=== PATIENT | male | born 1960 | race Caucasian/White ===

== ENCOUNTER 2023-11-28 14:14 | Inpatient (IN) ==
[2023-11-28 18:02] LABS: ABS Basophils 0.2 10^3/uL (0.0-0.1); ABS Eosinophils 0.1 10^3/uL (0.0-0.5); ABS Lymphocytes 2.1 10^3/uL (1.0-4.8); ABS Monocytes 1.2 10^3/uL (0.0-1.1); ABS Neutrophils 12.8 10^3/uL (1.5-7.6); Eosinophil % 0.8 %; Hematocrit 36.3 % (38-53); Lymphocyte % 12.8 %; Mean Corpuscular Hemoglobin 29.7 pg (27-33); Mean Corpuscular Hgb Conc 33.1 g/dL (31-36); Mean Corpuscular Volume 89.8 fL (80-97); Mean Platelet Volume 6.8 fL (7.5-11.2); Platelet Count 327 10^3/uL (150-450); Red Blood Count 4.04 10^6/uL (4.06-5.63); Red Cell Distribution Width 13.6 % (12-17); White Blood Count 16.3 10^3/uL (3.6-10.2)
[2023-11-28 18:38] LABS: Albumin/Globulin Ratio 1.3 (1-3); C Reactive Protein 108.7 mg/L (<8.01); Calcium 9.3 mg/dL (8.6-10.3); Creatinine, Serum 1.39 mg/dL (0.67-1.17); Globulin 3.2 g/dL (2-4); Total Bilirubin 0.4 mg/dL (0.2-1.0); Total Protein 7.2 g/dL (6.4-8.9); eGFR CKD-EPI 57.3 (>60)
[2023-11-28] MEDS: cefTRIAXone 1 gm/50 mL D5W 1 GM/50 ML BAG IV ONE (19:30)
[2023-11-28] MEDS: NS 0.9% 1000 ml BAG 1,000 ML IV ONE (19:42)
[2023-11-28] MEDS: metroNIDAZOLE IV 500 MG/100ML 500 MG/100 ML BAG IVPB ONE (20:15)
[2023-11-28 21:56] LABS: Urine Appearance Clear; Urine Bilirubin Negative (Negative); Urine Blood Negative (Negative); Urine Color Light-Yellow; Urine Glucose 4+ (>=1000 mg/dL) (Negative); Urine Ketones 1+ (Negative); Urine Nitrite Negative (Negative); Urine Protein Negative (Negative); Urine Specific Gravity 1.018 (1.002-1.030); Urine Urobilinogen Negative (Negative)
[2023-11-28] MEDS ORDERED: Zosyn per Pharmacy NOTE FOLLOW UP SCH (23:00)
[2023-11-29] MEDS: Vancomycin 1,000 MG in NS 0.9% 250 ml 250 ML IVPB ONE (00:05)
[2023-11-29] MEDS ORDERED: Dextrose 50% Syringe 50 ml 25 GM/50 ML SYRINGE IV PUSH PRN (01:53)
[2023-11-29] MEDS: Piperacillin/Tazobac 3.375 BAG 3.375 GM/100 ML BAG IV ONE (04:00)
[2023-11-29 06:14] LABS: ABS Basophils 0.1 10^3/uL (0.0-0.1); ABS Eosinophils 0.1 10^3/uL (0.0-0.5); ABS Lymphocytes 1.9 10^3/uL (1.0-4.8); ABS Monocytes 0.7 10^3/uL (0.0-1.1); ABS Neutrophils 7.9 10^3/uL (1.5-7.6); Hematocrit 31.1 % (38-53); Hemoglobin 10.5 g/dL (13.2-16.3); Lymphocyte % 17.9 %; Mean Corpuscular Hgb Conc 33.8 g/dL (31-36); Mean Corpuscular Volume 88.8 fL (80-97); Mean Platelet Volume 6.7 fL (7.5-11.2); Platelet Count 248 10^3/uL (150-450); Red Blood Count 3.51 10^6/uL (4.06-5.63); Red Cell Distribution Width 13.7 % (12-17); White Blood Count 10.7 10^3/uL (3.6-10.2)
[2023-11-29 06:18] LABS: INR 1.46 (0.83-1.13)
[2023-11-29 06:55] LABS: Creatinine, Serum 1.18 mg/dL (0.67-1.17); Magnesium 1.7 mg/dL (1.9-2.7); Potassium 3.9 mmol/L (3.5-5.0); eGFR CKD-EPI 69.8 (>60)
[2023-11-29] MEDS: Magnesium Sulfate 2 gm BAG 2 GM/50 ML BAG IV ONE ×2 (08:22→12:55)
[2023-11-29] MEDS: ZOSYN 3.375 GM Q8H per EXTENDED INFUSION IV SCH (09:52)
[2023-11-29] MEDS: Lactated Ringers 1000 ml BAG 500 ML IV ONE (14:14)
[2023-11-29] MEDS: Iodixanol (CONTRAST) 320 MG/ML 100 ML SDV IV ONE (14:44)
[2023-11-30 06:04] LABS: Hematocrit 33.5 % (38-53); Hemoglobin 11.1 g/dL (13.2-16.3); Mean Corpuscular Hemoglobin 29.6 pg (27-33); Mean Corpuscular Hgb Conc 33.2 g/dL (31-36); Mean Corpuscular Volume 89.3 fL (80-97); Mean Platelet Volume 7.1 fL (7.5-11.2); Platelet Count 271 10^3/uL (150-450); Red Blood Count 3.75 10^6/uL (4.06-5.63); Red Cell Distribution Width 13.8 % (12-17); White Blood Count 11.2 10^3/uL (3.6-10.2)
[2023-11-30 06:26] LABS: Calcium 8.3 mg/dL (8.6-10.3); Creatinine, Serum 1.29 mg/dL (0.67-1.17); Magnesium 2.5 mg/dL (1.9-2.7); Potassium 4.2 mmol/L (3.5-5.0); eGFR CKD-EPI 62.3 (>60)
[2023-11-30] MEDS: SEMAGLUTIDE 14 MG PO SCH ×2 (08:01→08:32)
[2023-11-30 12:01] LABS: Rapid COVID-19 Molecular Undetected (Undetected)
[2023-11-30] MEDS ORDERED: fentaNYL 250 mcg/5 ml 50 MCG/ML 5 ml VIAL (250 MCG) ONE (12:06)
[2023-11-30] MEDS ORDERED: Rocuronium 50 mg VIAL 10 mg/ml 5 ml VIAL (50 mg) ONE (12:06)
[2023-11-30] MEDS ORDERED: Midazolam 2 mg/2 ml VIAL 1 mg/ml 2 ml VIAL (2 mg) ONE ×2 (12:06→15:03)
[2023-11-30] MEDS ORDERED: Propofol 10 MG/ML 20 ML BTL ONE (12:06)
[2023-11-30] MEDS ORDERED: fentaNYL 100 mcg/2 ml 50 MCG/ML VIAL ONE (14:15)
[2023-11-30] MEDS ORDERED: Lidocaine 1% 50 ML MDV VIAL ONE (14:49)
[2023-11-30] MEDS ORDERED: Bupivacaine 0.5% SDV PF 30ML VIAL ONE (14:49)
[2023-11-30] MEDS ORDERED: Ondansetron 4 mg VIAL 2 MG/ML 2 ml VIAL ONE (14:58)
[2023-11-30] MEDS ORDERED: Ondansetron 4 mg VIAL 2 MG/ML 2 ml VIAL IV PRN (16:29)
[2023-11-30] MEDS ORDERED: fentaNYL 100 mcg/2 ml 50 MCG/ML VIAL IV PRN (16:29)
[2023-11-30] MEDS ORDERED: HYDROmorphone 1 MG/1 ML SYRINGE IV PRN (16:29)
[2023-11-30] MEDS ORDERED: Acetaminophen IV 1 GM/100ML 1,000 MG/100 ML BAG IV PRN (16:29)
[2023-11-30] MEDS ORDERED: Naloxone 0.4 mg VIAL 0.4 mg/ml 1 ml VIAL IV PRN (16:29)
[2023-11-30] MEDS: Senna TAB 8.6 mg TAB PO SCH (20:12)
[2023-12-01 06:01] LABS: ABS Basophils 0.1 10^3/uL (0.0-0.1); ABS Eosinophils 0.2 10^3/uL (0.0-0.5); ABS Lymphocytes 2.1 10^3/uL (1.0-4.8); ABS Monocytes 0.7 10^3/uL (0.0-1.1); ABS Neutrophils 8.9 10^3/uL (1.5-7.6); ABS Nucleated RBC 0.01 10^3/ul; Eosinophil % 2.1 %; Hematocrit 32.6 % (38-53); Hemoglobin 10.8 g/dL (13.2-16.3); Lymphocyte % 17.2 %; Mean Corpuscular Hgb Conc 33.3 g/dL (31-36); Mean Corpuscular Volume 90.1 fL (80-97); Mean Platelet Volume 7.2 fL (7.5-11.2); Nucleated Red Blood Cells % 0.1 %/100WBC (0.0-0.8); Platelet Count 296 10^3/uL (150-450); Red Blood Count 3.62 10^6/uL (4.06-5.63); Red Cell Distribution Width 13.9 % (12-17)
[2023-12-01 06:20] LABS: Calcium 8.2 mg/dL (8.6-10.3); Creatinine, Serum 1.31 mg/dL (0.67-1.17); Magnesium 2.3 mg/dL (1.9-2.7); eGFR CKD-EPI 61.2 (>60)
[2023-12-01] MEDS: Polyethylene Glycol 3350 17 GM PACKET PO SCH (12:01)
[2023-12-02 06:12] LABS: ABS Basophils 0.1 10^3/uL (0.0-0.1); ABS Eosinophils 0.2 10^3/uL (0.0-0.5); ABS Lymphocytes 1.6 10^3/uL (1.0-4.8); ABS Monocytes 0.9 10^3/uL (0.0-1.1); ABS Neutrophils 9.2 10^3/uL (1.5-7.6); ABS Nucleated RBC 0.01 10^3/ul; Eosinophil % 1.7 %; Hematocrit 31.1 % (38-53); Hemoglobin 10.3 g/dL (13.2-16.3); Lymphocyte % 13.4 %; Mean Corpuscular Hemoglobin 29.6 pg (27-33); Mean Corpuscular Hgb Conc 33.1 g/dL (31-36); Mean Corpuscular Volume 89.6 fL (80-97); Mean Platelet Volume 6.8 fL (7.5-11.2); Platelet Count 292 10^3/uL (150-450); Red Blood Count 3.47 10^6/uL (4.06-5.63); White Blood Count 12.1 10^3/uL (3.6-10.2)
[2023-12-02 06:44] LABS: Calcium 8.3 mg/dL (8.6-10.3); Creatinine, Serum 1.18 mg/dL (0.67-1.17); Magnesium 2.2 mg/dL (1.9-2.7); Phosphorus 2.9 mg/dL (2.5-5.0); Potassium 4.1 mmol/L (3.5-5.0); eGFR CKD-EPI 69.3 (>60)
[2023-12-02] MEDS: Amoxicillin/Clavul 875/125 TAB (Augmentin 875 tab) PO SCH (09:25)
[2023-12-03 05:32] LABS: ABS Basophils 0.1 10^3/uL (0.0-0.1); ABS Eosinophils 0.2 10^3/uL (0.0-0.5); ABS Lymphocytes 1.7 10^3/uL (1.0-4.8); ABS Monocytes 0.7 10^3/uL (0.0-1.1); ABS Neutrophils 8.6 10^3/uL (1.5-7.6); Eosinophil % 1.9 %; Hemoglobin 9.8 g/dL (13.2-16.3); Lymphocyte % 14.9 %; Mean Corpuscular Hemoglobin 30.1 pg (27-33); Mean Corpuscular Hgb Conc 33.6 g/dL (31-36); Mean Corpuscular Volume 89.4 fL (80-97); Mean Platelet Volume 6.9 fL (7.5-11.2); Platelet Count 292 10^3/uL (150-450); Red Blood Count 3.24 10^6/uL (4.06-5.63); Red Cell Distribution Width 13.8 % (12-17); White Blood Count 11.3 10^3/uL (3.6-10.2)
[2023-12-03 05:50] LABS: Calcium 8.1 mg/dL (8.6-10.3); Creatinine, Serum 0.93 mg/dL (0.67-1.17); Magnesium 2.1 mg/dL (1.9-2.7); Potassium 3.9 mmol/L (3.5-5.0); eGFR CKD-EPI 92.3 (>60)
[2023-12-03 09:53] VITALS: BP 114/72
== END 2023-12-03 13:45 | disposition home or self-care (01) | DRG 854 ==
LOC: ED 14:14 → EDHOLD 14:14 → SUATTDRO 21:21 → EDHOLD 11-29 01:50 → MED 11-29 01:58 → SUATTDRO 11-30 09:00
PROVIDERS: ADMIT Internal Medicine; ATTEND Hospitalist

== ENCOUNTER 2023-12-05 13:26 | Inpatient (IN) ==
[2023-12-05] MEDS: Ondansetron 4 mg VIAL 2 MG/ML 2 ml VIAL IV ONE (14:24)
[2023-12-05] MEDS: Lactated Ringers 1000 ml BAG 1,000 ML IV ONE ×2 (14:24→17:43)
[2023-12-05 14:32] LABS: Hematocrit 35.1 % (38-53); Hemoglobin 11.6 g/dL (13.2-16.3); Mean Corpuscular Hemoglobin 29.7 pg (27-33); Mean Corpuscular Volume 90.1 fL (80-97); Mean Platelet Volume 6.8 fL (7.5-11.2); Platelet Count 484 10^3/uL (150-450); Red Blood Count 3.89 10^6/uL (4.06-5.63); Red Cell Distribution Width 14.2 % (12-17); White Blood Count 26.6 10^3/uL (3.6-10.2)
[2023-12-05 14:53] LABS: ABS Basophils 0.1 10^3/uL (0.0-0.1); ABS Lymphocytes 1.1 10^3/uL (1.0-4.8); ABS Monocytes 0.8 10^3/uL (0.0-1.1); ABS Neutrophils 24.6 10^3/uL (1.5-7.6); ABS Nucleated RBC 0.03 10^3/ul; Lymphocyte % 4.2 %; Nucleated Red Blood Cells % 0.1 %/100WBC (0.0-0.8)
[2023-12-05 14:57] LABS: High Sens Troponin Baseline 4568 pg/mL (<20)
[2023-12-05 15:23] LABS: High Sensitivity Troponin 1 Hr 3867 pg/mL (<20)
[2023-12-05 15:25] LABS: ALT 15 U/L (7-52); AST 35 U/L (13-39); Albumin 3.6 g/dL (3.2-5.2); Albumin/Globulin Ratio 1.1 (1-3); Alkaline Phosphatase 57 U/L (35-149); Anion Gap 21 mmol/L (2-16); Blood Urea Nitrogen 32 mg/dL (6-24); C Reactive Protein 171.99 mg/L (<8.01); CO2 Carbon Dioxide 19 mmol/L (22-32); Calcium 9.9 mg/dL (8.6-10.3); Chloride 96 mmol/L (101-111); Creatinine, Serum 1.88 mg/dL (0.67-1.17); Globulin 3.4 g/dL (2-4); Glucose 257 mg/dL (70-100); Lipase < 10 U/L (11.0-82.0); Magnesium 2.1 mg/dL (1.9-2.7); Potassium 5.1 mmol/L (3.5-5.0); Sodium 136 mmol/L (135-145); Total Bilirubin 0.4 mg/dL (0.2-1.0); eGFR CKD-EPI 39.6 (>60)
[2023-12-05] MEDS: Heparin DRIP 25,000 UNITS BAG 25,000 UNITS/250 ML BAG IV SCH (16:59)
[2023-12-05] MEDS: Heparin 5000 UNITS/ML 1 mL VIAL IV SCH (17:01)
[2023-12-05 17:14] LABS: Hematocrit 32.6 % (38-53); Hemoglobin 10.8 g/dL (13.2-16.3); Mean Corpuscular Hemoglobin 29.3 pg (27-33); Mean Corpuscular Hgb Conc 33.2 g/dL (31-36); Mean Corpuscular Volume 88.3 fL (80-97); Mean Platelet Volume 6.9 fL (7.5-11.2); Platelet Count 448 10^3/uL (150-450); Red Blood Count 3.69 10^6/uL (4.06-5.63); White Blood Count 23.2 10^3/uL (3.6-10.2)
[2023-12-05 17:42] LABS: ABS Basophils 0.1 10^3/uL (0.0-0.1); ABS Monocytes 0.8 10^3/uL (0.0-1.1); ABS Neutrophils 21.3 10^3/uL (1.5-7.6); ABS Nucleated RBC 0.01 10^3/ul; Lymphocyte % 4.3 %; Nucleated Red Blood Cells % 0.1 %/100WBC (0.0-0.8); RBC Morphology Normal (Normal)
[2023-12-05 17:51] LABS: Venous Bicarbonate HCO3 18.5 mmol/L (24-28)
[2023-12-05 17:54] LABS: Creatinine, Serum 1.73 mg/dL (0.67-1.17); eGFR CKD-EPI 43.8 (>60)
[2023-12-05] MEDS ORDERED: Dextrose 50% Syringe 50 ml 25 GM/50 ML SYRINGE IV PUSH PRN (18:45)
[2023-12-05] MEDS ORDERED: Vancomycin per Pharmacy 1 EA NOTE FOLLOW UP SCH (19:00)
[2023-12-05] MEDS: cefTRIAXone 1 gm/50 mL D5W 1 GM/50 ML BAG IV SCH (19:59)
[2023-12-05] MEDS: Insulin GLARGINE 100 un/ml 10 ml VIAL SUBCUT ONE (20:59)
[2023-12-05] MEDS: Vancomycin 1000 MG in NS 0.9% 250 ML IVPB ONE (21:02)
[2023-12-05 23:38] LABS: Calcium 8.8 mg/dL (8.6-10.3); Creatinine, Serum 1.76 mg/dL (0.67-1.17); Potassium 4.4 mmol/L (3.5-5.0); eGFR CKD-EPI 42.9 (>60)
[2023-12-06] MEDS: Lactated Ringers 1000 ml BAG 500 ML IV ONE (02:58)
[2023-12-06 05:08] LABS: ABS Basophils 0.1 10^3/uL (0.0-0.1); ABS Lymphocytes 2.2 10^3/uL (1.0-4.8); ABS Neutrophils 14.1 10^3/uL (1.5-7.6); Eosinophil % 0.1 %; Hematocrit 28.2 % (38-53); Hemoglobin 9.5 g/dL (13.2-16.3); Lymphocyte % 12.7 %; Mean Corpuscular Hemoglobin 29.5 pg (27-33); Mean Corpuscular Hgb Conc 33.7 g/dL (31-36); Mean Corpuscular Volume 87.5 fL (80-97); Platelet Count 367 10^3/uL (150-450); Red Blood Count 3.23 10^6/uL (4.06-5.63); Red Cell Distribution Width 13.9 % (12-17); White Blood Count 17.5 10^3/uL (3.6-10.2)
[2023-12-06 06:15] LABS: Calcium 8.5 mg/dL (8.6-10.3); Creatinine, Serum 1.69 mg/dL (0.67-1.17); Magnesium 2.1 mg/dL (1.9-2.7); Potassium 4.1 mmol/L (3.5-5.0); eGFR CKD-EPI 45.1 (>60)
[2023-12-06] MEDS: Vancomycin 500 MG in NS 0.9% 250 ML IVPB SCH (07:54)
[2023-12-06] MEDS ORDERED: Zosyn per Pharmacy NOTE FOLLOW UP SCH (08:00)
[2023-12-06] MEDS: Aspirin EC 81 mg TAB.EC (enteric coated) PO SCH (10:06)
[2023-12-06] MEDS: Piperacillin/Tazobac 3.375 BAG 3.375 GM/100 ML BAG IV ONE (10:07)
[2023-12-06] MEDS: Empagliflozin 25 MG TAB PO SCH (10:07)
[2023-12-06] MEDS ORDERED: Sulfur Hexaflouride MICROSPHR 25 MG VIAL ONE (11:25)
[2023-12-06] MEDS: ZOSYN 3.375 GM Q8H per EXTENDED INFUSION IV SCH (14:09)
[2023-12-06 18:03] LABS: Calcium 8.3 mg/dL (8.6-10.3); Creatinine, Serum 1.78 mg/dL (0.67-1.17); Magnesium 2.1 mg/dL (1.9-2.7); Potassium 4.1 mmol/L (3.5-5.0); eGFR CKD-EPI 42.3 (>60)
[2023-12-07 04:11] LABS: Creatinine, Serum 2.24 mg/dL (0.67-1.17); eGFR CKD-EPI 32.1 (>60)
[2023-12-07 04:32] LABS: ABS Basophils 0.2 10^3/uL (0.0-0.1); ABS Eosinophils 0.1 10^3/uL (0.0-0.5); ABS Lymphocytes 1.8 10^3/uL (1.0-4.8); ABS Monocytes 0.5 10^3/uL (0.0-1.1); ABS Neutrophils 9.9 10^3/uL (1.5-7.6); Eosinophil % 0.4 %; Hematocrit 27.2 % (38-53); Hemoglobin 9.3 g/dL (13.2-16.3); Lymphocyte % 14.6 %; Mean Corpuscular Volume 88.3 fL (80-97); Mean Platelet Volume 7.2 fL (7.5-11.2); Platelet Count 364 10^3/uL (150-450); Red Blood Count 3.08 10^6/uL (4.06-5.63); Red Cell Distribution Width 14.4 % (12-17); White Blood Count 12.5 10^3/uL (3.6-10.2)
[2023-12-07] MEDS ORDERED: Vancomycin Trough Check NOTE FOLLOW UP ONE (06:00)
[2023-12-07 09:00] LABS: Calcium 8.4 mg/dL (8.6-10.3); Magnesium 2.3 mg/dL (1.9-2.7); Potassium 3.9 mmol/L (3.5-5.0)
[2023-12-07] MEDS: NS 0.9% 1000 ml BAG 1,000 ML IV ONE ×2 (10:57→17:07)
[2023-12-07] MEDS: Lactated Ringers 1000 ml BAG 1,000 ML IV ONE (11:00)
[2023-12-07] MEDS: Ondansetron ODT 4 mg TAB 4 MG TAB SL PRN (13:31)
[2023-12-07] MEDS ORDERED: Al Hydrox/Mg Hydrox/Simet LIQ 30 ML UDC PO PRN (15:46)
[2023-12-07 15:57] LABS: ABS Basophils 0.2 10^3/uL (0.0-0.1); ABS Eosinophils 0.1 10^3/uL (0.0-0.5); ABS Lymphocytes 1.5 10^3/uL (1.0-4.8); ABS Monocytes 0.8 10^3/uL (0.0-1.1); ABS Neutrophils 15.4 10^3/uL (1.5-7.6); ABS Nucleated RBC 0.02 10^3/ul; Eosinophil % 0.4 %; Hemoglobin 9.5 g/dL (13.2-16.3); Lymphocyte % 8.2 %; Mean Corpuscular Hemoglobin 29.3 pg (27-33); Mean Corpuscular Hgb Conc 32.8 g/dL (31-36); Mean Corpuscular Volume 89.4 fL (80-97); Mean Platelet Volume 6.9 fL (7.5-11.2); Nucleated Red Blood Cells % 0.1 %/100WBC (0.0-0.8); Platelet Count 459 10^3/uL (150-450); Red Blood Count 3.24 10^6/uL (4.06-5.63); Red Cell Distribution Width 14.1 % (12-17); White Blood Count 17.8 10^3/uL (3.6-10.2)
[2023-12-07] MEDS: Famotidine IV 10 MG/ML 2 ml VIAL (20 mg) IV SLOW PU ONE (16:00)
[2023-12-07] MEDS: NS 0.9% 500 ml BAG 500 ML IV ONE (16:27)
[2023-12-07 17:02] LABS: Albumin 3.4 g/dL (3.2-5.2); C Reactive Protein 140.97 mg/L (<8.01); Calcium 8.2 mg/dL (8.6-10.3); Creatinine, Serum 1.83 mg/dL (0.67-1.17); Direct Bilirubin 0.1 mg/dL (0.03-0.18); Globulin 3.4 g/dL (2-4); Indirect Bilirubin 0.4 mg/dL (0.3-1.0); Potassium 3.8 mmol/L (3.5-5.0); Total Bilirubin 0.5 mg/dL (0.2-1.0); Total Protein 6.8 g/dL (6.4-8.9)
[2023-12-07 17:49] LABS: Urine Appearance Clear; Urine Bilirubin Negative (Negative); Urine Blood Negative (Negative); Urine Color Light-Yellow; Urine Glucose 4+ (>=1000 mg/dL) (Negative); Urine Ketones 1+ (Negative); Urine Nitrite Negative (Negative); Urine Protein Negative (Negative); Urine Urobilinogen Negative (Negative)
[2023-12-07 18:38] LABS: ABS Lymphocytes 1.3 10^3/uL (1.0-4.8); ABS Monocytes 0.8 10^3/uL (0.0-1.1); ABS Neutrophils 14.2 10^3/uL (1.5-7.6); ABS Nucleated RBC 0.01 10^3/ul; Eosinophil % 0.1 %; Hematocrit 30.5 % (38-53); Hemoglobin 9.6 g/dL (13.2-16.3); Lymphocyte % 7.9 %; Mean Corpuscular Hgb Conc 31.5 g/dL (31-36); Mean Corpuscular Volume 92.2 fL (80-97); Mean Platelet Volume 6.7 fL (7.5-11.2); Platelet Count 388 10^3/uL (150-450); Red Blood Count 3.31 10^6/uL (4.06-5.63); Red Cell Distribution Width 14.3 % (12-17); White Blood Count 16.3 10^3/uL (3.6-10.2)
[2023-12-07 19:45] LABS: Albumin 3.3 g/dL (3.2-5.2); Albumin/Globulin Ratio 1.1 (1-3); Calcium 7.7 mg/dL (8.6-10.3); Creatinine, Serum 1.81 mg/dL (0.67-1.17); Potassium 3.7 mmol/L (3.5-5.0); Total Bilirubin 0.5 mg/dL (0.2-1.0); Total Protein 6.3 g/dL (6.4-8.9); eGFR CKD-EPI 41.5 (>60)
[2023-12-07] MEDS: Insulin GLARGINE 100 un/ml 10 ml VIAL SUBCUT SCH (21:38)
[2023-12-07 23:27] LABS: High Sensitivity Troponin 1 Hr 3216 pg/mL (<20)
[2023-12-08 05:45] LABS: ABS Basophils 0.1 10^3/uL (0.0-0.1); ABS Lymphocytes 1.9 10^3/uL (1.0-4.8); ABS Monocytes 0.6 10^3/uL (0.0-1.1); ABS Neutrophils 8.5 10^3/uL (1.5-7.6); ABS Nucleated RBC 0.02 10^3/ul; Eosinophil % 0.2 %; Hemoglobin 8.8 g/dL (13.2-16.3); Mean Corpuscular Hemoglobin 29.9 pg (27-33); Mean Corpuscular Volume 88.1 fL (80-97); Nucleated Red Blood Cells % 0.1 %/100WBC (0.0-0.8); Platelet Count 341 10^3/uL (150-450); Red Blood Count 2.95 10^6/uL (4.06-5.63); Red Cell Distribution Width 14.2 % (12-17); White Blood Count 11.2 10^3/uL (3.6-10.2)
[2023-12-08 06:58] LABS: Calcium 7.8 mg/dL (8.6-10.3); Creatinine, Serum 1.9 mg/dL (0.67-1.17); Phosphorus 4.4 mg/dL (2.5-5.0); eGFR CKD-EPI 39.1 (>60)
[2023-12-08 07:12] LABS: Magnesium 2.5 mg/dL (1.9-2.7)
[2023-12-08 18:34] LABS: High Sensitivity Troponin 1 Hr 5862 pg/mL (<20)
[2023-12-08 20:26] LABS: Ferritin 1384.2 ng/mL (24-336)
[2023-12-09 05:09] LABS: ABS Eosinophils 0.2 10^3/uL (0.0-0.5); ABS Lymphocytes 2.2 10^3/uL (1.0-4.8); ABS Monocytes 0.5 10^3/uL (0.0-1.1); ABS Neutrophils 8.1 10^3/uL (1.5-7.6); ABS Nucleated RBC 0.01 10^3/ul; Eosinophil % 1.7 %; Hemoglobin 8.5 g/dL (13.2-16.3); Lymphocyte % 19.8 %; Mean Corpuscular Volume 88.2 fL (80-97); Mean Platelet Volume 7.2 fL (7.5-11.2); Nucleated Red Blood Cells % 0.1 %/100WBC (0.0-0.8); Platelet Count 279 10^3/uL (150-450); Red Blood Count 2.84 10^6/uL (4.06-5.63); Red Cell Distribution Width 14.3 % (12-17); White Blood Count 11.1 10^3/uL (3.6-10.2)
[2023-12-09 06:09] LABS: Creatinine, Serum 2.43 mg/dL (0.67-1.17); eGFR CKD-EPI 29.1 (>60)
[2023-12-09] MEDS: Ferric Gluconate IV 125 MG in NS 0.9% 100 ml BAG 100 ML IVPB SCH ×2 (09:16→10:07)
[2023-12-09 09:38] LABS: Calcium 7.5 mg/dL (8.6-10.3); Potassium 3.4 mmol/L (3.5-5.0)
[2023-12-09] MEDS ORDERED: Enoxaparin 40 MG/0.4 ML SYR SUBCUT SCH (20:00)
[2023-12-09] MEDS: Enoxaparin 30 MG/0.3 ML SYR SUBCUT SCH (21:36)
[2023-12-10 06:01] LABS: ABS Basophils 0.1 10^3/uL (0.0-0.1); ABS Eosinophils 0.3 10^3/uL (0.0-0.5); ABS Lymphocytes 1.5 10^3/uL (1.0-4.8); ABS Monocytes 0.6 10^3/uL (0.0-1.1); ABS Neutrophils 7.9 10^3/uL (1.5-7.6); ABS Nucleated RBC 0.01 10^3/ul; Eosinophil % 3.2 %; Hematocrit 26.6 % (38-53); Hemoglobin 9.1 g/dL (13.2-16.3); Lymphocyte % 14.1 %; Mean Corpuscular Hemoglobin 30.1 pg (27-33); Mean Corpuscular Hgb Conc 34.2 g/dL (31-36); Mean Corpuscular Volume 88.2 fL (80-97); Mean Platelet Volume 7.2 fL (7.5-11.2); Nucleated Red Blood Cells % 0.1 %/100WBC (0.0-0.8); Platelet Count 304 10^3/uL (150-450); Red Blood Count 3.02 10^6/uL (4.06-5.63); Red Cell Distribution Width 14.2 % (12-17); White Blood Count 10.4 10^3/uL (3.6-10.2)
[2023-12-10 06:54] LABS: Calcium 7.8 mg/dL (8.6-10.3); Creatinine, Serum 2.68 mg/dL (0.67-1.17); Magnesium 2.5 mg/dL (1.9-2.7); Potassium 3.1 mmol/L (3.5-5.0); eGFR CKD-EPI 25.9 (>60)
[2023-12-10] MEDS ORDERED: DALBAVANCIN HCL (NF) 500 MG/25 ML VIAL IVPB ONE (10:13)
[2023-12-10] MEDS: KCL 20 MEQ/100 ML IVPREMIX 20 MEQ/100 ML BAG IV SCH (10:39)
[2023-12-10] MEDS: Potassium Chlor 20 meq TAB.ER PO ONE ×2 (10:40→15:30)
[2023-12-10] MEDS: [UNRECOGNIZED DRUG - REMARK] IVPB ONE (12:27)
[2023-12-10 13:57] VITALS: BP 129/64
== END 2023-12-10 15:40 | disposition home health service (06) | DRG 280 ==
LOC: EDHOLD 13:26 → ED 13:26 → SUATTDRO 17:05 → MEDTELE 17:43 → ICU 12-07 18:41 → MEDTELE 12-09 13:46
PROVIDERS: ADMIT Internal Medicine; ATTEND Internal Medicine

== ENCOUNTER 2024-04-09 09:00 | Observation (INO) ==
[2024-04-09 09:00] LABS: ABS Lymphocytes 0.6 10^3/uL (1.0-4.8); ABS Monocytes 0.1 10^3/uL (0.0-1.1); ABS Neutrophils 9.5 10^3/uL (1.5-7.6); ABS Nucleated RBC 0.01 10^3/ul; Hematocrit 37.6 % (38-53); Hemoglobin 12.5 g/dL (13.2-16.3); Mean Corpuscular Hemoglobin 28.7 pg (27-33); Mean Corpuscular Hgb Conc 33.4 g/dL (31-36); Mean Corpuscular Volume 85.9 fL (80-97); Mean Platelet Volume 7.5 fL (7.5-11.2); Platelet Count 220 10^3/uL (150-450); Red Blood Count 4.37 10^6/uL (4.06-5.63); Red Cell Distribution Width 17.7 % (12-17); White Blood Count 10.2 10^3/uL (3.6-10.2)
[2024-04-09 09:11] LABS: Activated Partial Thrombo Time 28.2 seconds (26.0-38.0); INR 1.17 (0.83-1.13)
[2024-04-09 09:22] LABS: Creatinine, Serum 1.69 mg/dL (0.67-1.17); Potassium 4.4 mmol/L (3.5-5.0); eGFR CKD-EPI 45.1 (>60)
[2024-04-09] MEDS ORDERED: Heparin 2 UNITS/ML IVPREMIX 3,000 UNIT/1,500 ML BAG IV ONE (09:47)
[2024-04-09] MEDS ORDERED: Lidocaine 1% VIAL 10 MG/ML 30 ML VIAL ONE (09:47)
[2024-04-09] MEDS ORDERED: Iodixanol 320 (CONTRAST) 100 ML SDV ONE (09:47)
[2024-04-09] MEDS ORDERED: Heparin 1,000 UNIT/ML 10 ml (10,000 UNITS) CATHLAB/DIALYSIS ONE (10:10)
[2024-04-09] MEDS ORDERED: Midazolam 5 mg/5 ml VIAL 1 mg/ml 5 ml VIAL (5 mg) ONE (10:10)
[2024-04-09] MEDS ORDERED: fentaNYL 100 mcg/2 ml 50 MCG/ML VIAL ONE (10:10)
[2024-04-09] MEDS ORDERED: Naloxone 0.4 mg VIAL 0.4 mg/ml 1 ml VIAL IV PUSH PRN (10:17)
[2024-04-09] MEDS ORDERED: Flumazenil 0.5 mg/5 ml 0.1 MG/ML 5 ml VIAL IV PRN (10:17)
[2024-04-09] MEDS ORDERED: nitroGLYCERIN DRIP 25,000 MCG/250 ML BTL ONE (11:18)
[2024-04-09] MEDS ORDERED: Ondansetron 4 mg VIAL 2 MG/ML 2 ml VIAL ONE (16:33)
[2024-04-09] MEDS ORDERED: Ondansetron 4 mg VIAL 2 MG/ML 2 ml VIAL IV PRN (17:24)
[2024-04-09] MEDS ORDERED: Polyethylene Glycol 3350 17 GM PACKET PO PRN (17:24)
[2024-04-09] MEDS ORDERED: Senna TAB 8.6 mg TAB PO PRN (17:24)
[2024-04-09] MEDS: fentaNYL 100 mcg/2 ml 50 MCG/ML VIAL IV SLOW PU ONE (17:41)
[2024-04-09] MEDS: Midazolam 10 mg/10 ml VIAL 1 mg/ml 10 ml VIAL (10 mg) IV SLOW PU ONE (17:41)
[2024-04-09] MEDS: NS 0.9% 1000 ml BAG 1,000 ML IV SCH (18:06)
[2024-04-09 18:20] LABS: ABS Lymphocytes 0.8 10^3/uL (1.0-4.8); ABS Monocytes 0.2 10^3/uL (0.0-1.1); Hematocrit 35.5 % (38-53); Hemoglobin 11.4 g/dL (13.2-16.3); Lymphocyte % 4.5 %; Mean Corpuscular Hemoglobin 27.7 pg (27-33); Mean Corpuscular Hgb Conc 32.2 g/dL (31-36); Mean Corpuscular Volume 86.2 fL (80-97); Mean Platelet Volume 7.5 fL (7.5-11.2); Platelet Count 213 10^3/uL (150-450); Red Blood Count 4.12 10^6/uL (4.06-5.63); Red Cell Distribution Width 17.6 % (12-17)
[2024-04-09] MEDS ORDERED: Dextrose 50% Syringe 50 ml 25 GM/50 ML SYRINGE IV PUSH PRN (18:55)
[2024-04-09] MEDS: Empagliflozin 25 MG TAB PO SCH (21:11)
[2024-04-10 06:12] LABS: Hematocrit 31.2 % (38-53); Hemoglobin 10.4 g/dL (13.2-16.3); Mean Corpuscular Hemoglobin 28.4 pg (27-33); Mean Corpuscular Hgb Conc 33.3 g/dL (31-36); Mean Corpuscular Volume 85.3 fL (80-97); Mean Platelet Volume 7.7 fL (7.5-11.2); Platelet Count 188 10^3/uL (150-450); Red Blood Count 3.65 10^6/uL (4.06-5.63); Red Cell Distribution Width 17.7 % (12-17); White Blood Count 15.2 10^3/uL (3.6-10.2)
[2024-04-10 09:46] VITALS: BP 92/47
[2024-04-10] MEDS: COVID VAC 23-24(12+)(Moderna) SYR 0.5 ML IM ONE (10:01)
== END 2024-04-10 10:35 | disposition home or self-care (01) ==
LOC: SSU 09:00
PROVIDERS: ADMIT Radiology Diagnostic Radiology; ATTEND Internal Medicine